=== PATIENT | female | born 1990 | race Caucasian/White ===

== ENCOUNTER 2017-04-07 01:24 | Emergency (ER) | payer MEDICAID ==
[~2017-04-07] VITALS: Ht 160 cm; Wt 79.0 kg
[2017-04-07 01:41] VITALS: BP 116/73
== END 2017-04-07 03:00 | disposition left against medical advice (07) ==
LOC: ER 01:24
DX: Z53.21 Procedure and treatment not carried out due to patient leaving prior to being seen by health care provider (principal)